=== PATIENT | male | born 1945 | race Caucasian/White ===

== ENCOUNTER 2017-12-20 06:29 | Day surgery (SDC) | payer MEDICARE, BC ==
[2017-12-19 10:01] VITALS: BMI 28.2
[2017-12-20] MEDS ORDERED: cefTRIAXone\\ROCEPHIN 2 GM, Admixture Fee 1 EACH in Sodium Chloride 0.9% 100 ML IVPB SCH (08:15)
[2017-12-20 08:22] LABS: #Basophils 0.1 thou/uL (0.0-0.2); #Eosinphils 0.1 thou/uL (0.0-0.7); #Lymphocytes 1.1 thou/uL (1.20-3.40); #Monocytes 0.5 thou/uL (0.11-0.59); #Neutrophils 3.5 thou/uL (1.40-6.50); %Basophils 1.1 % (0.0-1.0); %Eosinophils 2.2 % (0.0-10.0); %Lymphocytes 20.7 % (21.0-51.0); %Neutrophils 66.1 % (42.0-75.0); Hemoglobin 12.8 g/dL (14.0-18.0); Mean Corpuscular HGB CONC 31.8 g/dL (32.0-36.0); Mean Corpuscular Hemoglobin 27.5 pg (27.0-31.0); Mean Corpuscular Volume 86.3 fl (80.0-94.0); Platelet Count 192 thou/uL (130-400); RBC Distribution Width 13.7 % (11.5-14.5); Red Blood Cell (RBC) Count 4.64 mill/uL (4.70-6.10); White Blood Cell (WBC) Count 5.3 thou/uL (4.8-10.8)
[2017-12-20 08:30] LABS: INR-International Normal Ratio 1.1; PTT 30.3 SEC (22.9-36.1); Prothrombin Time 14.1 SEC (12.0-14.7)
[2017-12-20 08:36] LABS: Anion Gap 12 mmol/L (10-20); BUN (Urea Nitrogen) 13 mg/dL (8.4-25.7); Calc. Creatinine Clearance 102 mL/min (70-130); Calcium 9.5 mg/dL (7.8-10.44); Carbon Dioxide 26 mmol/L (23-31); Chloride 104 mmol/L (98-107); Estimated GFR-MDRD 86; Glucose 187 mg/dL (83-110); Potassium 4.1 mmol/L (3.5-5.1); Sodium 138 mmol/L (136-145)
[2017-12-20] MEDS ORDERED: Fentanyl 100 MCG/2 ML VIAL ONE (09:49)
[2017-12-20] MEDS ORDERED: MITOMYCIN IR SCH ×2 (10:30→11:00)
[2017-12-20] MEDS ORDERED: ADMIXTURE FEE IR SCH ×2 (10:30→11:00)
[2017-12-20] MEDS ORDERED: SODIUM CHLORIDE IR SCH ×2 (10:30→11:00)
[2017-12-20] MEDS ORDERED: SUGAMMADEX SODIUM 500 MG/5 ML VIAL ONE (11:04)
[2017-12-20] MEDS ORDERED: B & O ONE (12:48)
--- NOTE | 2017-12-20 17:11 | OP ---
DATE OF PROCEDURE: 12/20/2017 PREOPERATIVE DIAGNOSIS: Bladder tumor. POSTOPERATIVE DIAGNOSIS: Bladder tumor. PROCEDURE PERFORMED: Cysto and TURBT. SURGEON: Dr. Leroy Carmona ANESTHETIC: General. ESTIMATED BLOOD LOSS: 50 mL DRAINS PLACED: A 20-Turkmen Hilton with 20 mL in the balloon, also had mitomycin C 50 mg and 60 mL of normal saline, placed at the end of the case. FINDINGS: There was no evidence of urethral stricture disease. There was moderate lateral lobe hype rtrophy. There was one large over 5 cm papillary tumor coming off the left wall. It was lying over the left ureteral orifice, but not involving it. I saw no other papillary tumors, lesions, or other suspicious areas in the bladder. SPECIMENS SENT OFF: Superficial and deep of this tumor. OPERATIVE TECHNIQUE: After obtaining written and verbal consent from the patient after receiving IV antibiotics, he was taken to the operating suite. He was placed in the supine position on the [facility] ent table. PlexiPulses were placed on his lower extremities and turned on. He was given a general a nesthetic and oral intubation. He was placed in the dorsal lithotomy position and sterilely prepped and draped. Cystoscopy was performed with a 22-Turkmen sheath. This was well lubricated and passed u nder direct vision through the male urethra and into the urinary bladder with the aid of a 30-degree lens and a video camera and monitor. The bladder was filled and emptied a number of times and examin ed with both a 30 and 70 degree lens. At this point, the instruments were removed. A 24-Turkmen rese ctoscope sheath with visual obturator was passed through the male urethra into the bladder with a 30- degree lens. Gyrus generator with a bladder tumor loop and an Cronin resectoscope with 30-degree l ens and video camera and monitor were used. We scraped off and resected the bladder tumor was superf icial in the bladder wall either this out. He had a little bit of obturator reflex starting, so he w as given a deeper paralytic and we went ahead and resected deep in this region and ellik'd these out and then cauterized the edges and the base from where we had resected. The instruments were then rem romi. Hilton catheter was placed. Mitomycin C was placed and a catheter plug was placed. He was prabhu kened, extubated, and taken by stretcher to the recovery room.
--- NOTE | 2017-12-22 00:18 | EKG ---
Test Reason : PREOP Blood Pressure : / mmHG Vent. Rate : 068 BPM Atrial Rate : 068 BPM P-R Int : 186 ms QRS Dur : 092 ms QT Int : 372 ms P-R-T Axes : 018 -19 047 degrees QTc Int : 395 ms Normal sinus rhythm Normal ECG When compared with ECG of 27-NOV-2015 19:10, Criteria for Inferior infarct are no longer Present Confirmed by Eliane ROSA ([id number]) on 12/22/2017 12:17:45 AM Referred By: JUAN Confirmed By:Eliane ROSA
== END 2017-12-20 14:15 | disposition home or self-care (01) ==
LOC: SDC 06:29
PROVIDERS: ATTEND Urology
PROC: 0TBB8ZX Excision of Bladder, Via Natural or Artificial Opening Endoscopic, Diagnostic (ICD-10-PCS; principal; 2017-12-20)
DX: C67.2 Malignant neoplasm of lateral wall of bladder (principal); I10 Essential (primary) hypertension; E78.00 Pure hypercholesterolemia, unspecified; I25.10 Atherosclerotic heart disease of native coronary artery without angina pectoris; K21.9 Gastro-esophageal reflux disease without esophagitis; E78.5 Hyperlipidemia, unspecified; E11.9 Type 2 diabetes mellitus without complications; E03.9 Hypothyroidism, unspecified; Z86.010 Personal history of colon polyps; Z87.891 Personal history of nicotine dependence; Z87.442 Personal history of urinary calculi; Z79.899 Other long term (current) drug therapy; Z79.82 Long term (current) use of aspirin; Z79.84 Long term (current) use of oral hypoglycemic drugs; Z88.8 Allergy status to other drugs, medicaments and biological substances; Z91.048 Other nonmedicinal substance allergy status; Z96.662 Presence of left artificial ankle joint; Z95.5 Presence of coronary angioplasty implant and graft; Z98.41 Cataract extraction status, right eye; Z98.42 Cataract extraction status, left eye; Z98.1 Arthrodesis status; Z98.890 Other specified postprocedural states
CPT/HCPCS: 52235; 80048; 85025; 85610; 85730; 88305; 93005; J9280 ×2; 36415; 93010; J0696; J3010; J3370; J7050

== ENCOUNTER 2018-04-04 10:50 | Outpatient (CLI) | payer MEDICARE, BC ==
[2018-04-04 11:50] LABS: Hemoglobin 12.3 g/dL (14.0-18.0); Mean Corpuscular HGB CONC 31.7 g/dL (32.0-36.0); Mean Corpuscular Hemoglobin 26.8 pg (27.0-31.0); Mean Corpuscular Volume 84.5 fl (80.0-94.0); Mean Platelet Volume 8.5 fL (7.4-10.4); Platelet Count 181 thou/uL (130-400); RBC Distribution Width 15.3 % (11.5-14.5); Red Blood Cell (RBC) Count 4.58 mill/uL (4.70-6.10)
[2018-04-04 12:00] LABS: INR-International Normal Ratio 1.1; PTT 29.1 SEC (22.9-36.1); Prothrombin Time 14.4 SEC (12.0-14.7)
[2018-04-04 12:15] LABS: Anion Gap 13 mmol/L (10-20); BUN (Urea Nitrogen) 9 mg/dL (8.4-25.7); Calc. Creatinine Clearance 0 mL/min (70-130); Calcium 9.6 mg/dL (7.8-10.44); Carbon Dioxide 28 mmol/L (23-31); Chloride 102 mmol/L (98-107); Estimated GFR-MDRD 79; Glucose 131 mg/dL (83-110); Potassium 4.4 mmol/L (3.5-5.1); Sodium 139 mmol/L (136-145)
== END 2018-04-04 10:51 | disposition home or self-care (01) ==
LOC: LABBT 10:50
PROVIDERS: ATTEND Urology
DX: Z01.812 Encounter for preprocedural laboratory examination (principal); C67.9 Malignant neoplasm of bladder, unspecified
CPT/HCPCS: 80048; 85027; 85610; 85730

== ENCOUNTER 2018-04-09 05:33 | Day surgery (SDC) | payer MEDICARE, BC ==
[2018-04-04 11:26] VITALS: BMI 28.7
[2018-04-09] MEDS ORDERED: Fentanyl 100 MCG/2 ML VIAL ONE (06:57)
[2018-04-09] MEDS ORDERED: Iothalamate Meglumine 60% 50 ML VIAL FS ONE (07:17)
[2018-04-09] MEDS ORDERED: Levofloxacin 500 mg/D5W 100 ml Premix Bag ONE (07:30)
[2018-04-09] MEDS ORDERED: Ondansetron HCl/PF 4 MG/2 ML Vial ONE ×3 (08:29→11:49)
--- NOTE | 2018-04-09 10:31 | RAD ---
BILATERAL RETROGRADE UROGRAMS: Date: 04/09/18 HISTORY: Urinary bladder tumor. FLUOROSCOPY: Total fluoroscopy time is 1 minute and 12 seconds with a total dose of 43.6 mGy*cm^2. FINDINGS: Groundskeeper Porter image demonstrates surgical instrument overlying the midline of the pelvis. Phleboliths overlie the right hemipelvis. No suspicious calcifications are seen. Degenerative changes are seen in the sp ine with right convex curvature present. Bilateral retrograde urograms demonstrate no filling defect within the ureters bilaterally and there is no hydronephrosis or hydroureter. Final image demonstrate s emptying of the renal collecting systems, greater on the left. Urinary bladder is not completely op acified. Correlation with intraoperative findings is recommended. There is a tiny metallic density seen just inferior to the left humeral head of uncertain etiology. IMPRESSION: Bilateral retrograde urograms demonstrating no evidence of obstruction or definite filling defect see n to suggest calculus. Correlation with intraoperative findings is recommended. POS: ALESSANDRO
[2018-04-09] MEDS ORDERED: Lidocaine 1% PF 5 ML VIAL ONE (11:49)
[2018-04-09] MEDS ORDERED: PROPOFOL 200 MG/20 ML VIAL ONE (11:49)
[2018-04-09] MEDS ORDERED: Dexamethasone 20 MG/5 ML VIAL ONE (11:49)
[2018-04-09] MEDS ORDERED: ePHEDrine/0.9% NaCl/PF SYRINGE 50 mg/10 ml ONE (11:49)
--- NOTE | 2018-04-09 15:44 | OP ---
DATE OF PROCEDURE: 04/09/2018 PREOPERATIVE DIAGNOSIS: History of bladder cancer, status post induction BCG. POSTOPERATIVE DIAGNOSIS: History of bladder cancer, status post induction BCG. PROCEDURE PERFORMED: Cystoscopy, bilateral retrogrades, bladder biopsy. SURGEON: Dr. Leroy Carmona. ANESTHETIC: General. ESTIMATED BLOOD LOSS: Less than 50 mL. DRAINS: None. PATHOLOGY: We did biopsy of the mucosal line small less than 0.5 cm nonsuspicious lesion on the mid trigone. We did random bladder biopsies with a biopsy of prior tumor site left wall. FINDINGS: There is no obvious tumor, foreign body, or stone seen. Retrograde studies were normal. OPERATIVE TECHNIQUE: Obtain written verbal consent from the patient and after receiving IV antibioti cs, he was taken to the operating suite. He was placed in supine position on the treatment table. P lexiPulses were placed on his lower extremities and turned on. He was given a general anesthetic and oral obturator intubation. He was placed in dorsal lithotomy position, sterilely prepped and draped . Cystoscopy was performed with a 22-Qatari sheath. This was well lubricated, passed under direct v ision through the male urethra into the urinary bladder with aid of a 30 degree lens, a video camera and monitor. The bladder was filled and emptied few times as it was inspected with the 30 and the 70 degree lens. There was evidence of prior tumor resection site on the left side, but no evidence of recurrent papillary tumors or suspicious areas. There was a little mound of less than 0.5 cm size in the mid trigone that was covered with mucosa, it was not really suspicious, but we did biopsy and de stroyed this. This was done later in the procedure. At this point, we went ahead and did dental services director KUB with the fluoroscopy unit. We brought in a 5 Qatari Pollack catheter, flushed with contrast, placed in the left ureteral orifice and slowly injected about 10 mL of contrast in a retrograde manner, taki ng images as we did this, the right side was done in a similar manner. Drainage films were taken on both sides and there were no suspicious areas of filling defect or obstruction noted on either side. This with a cold cup biopsy forceps, we did the small trigonal lesion. We did random bladder biopsi es and then biopsy of old tumor site. We then used the Bugbee electrode to cauterize all these biops y sites and at this point, the bladder was drained, the instruments were removed. He was awakened, e xtubated, and taken by stretcher to the recovery room.
== END 2018-04-09 10:35 | disposition home or self-care (01) ==
LOC: SDC 05:33
PROVIDERS: ATTEND Urology
PROC: 0TBB8ZX Excision of Bladder, Via Natural or Artificial Opening Endoscopic, Diagnostic (ICD-10-PCS; principal; 2018-04-09)
DX: C67.2 Malignant neoplasm of lateral wall of bladder (principal); N30.80 Other cystitis without hematuria; Z91.048 Other nonmedicinal substance allergy status; Z88.8 Allergy status to other drugs, medicaments and biological substances
CPT/HCPCS: 52204; 74420; 82962; 88305; C1758; 36416; J0131; J1100; J1956; J2001; J2405; J2704; J3010; Q9961

== ENCOUNTER 2022-04-27 11:14 | Outpatient (CLI) | payer MEDICARE, BC | END 2022-04-27 11:15 | disposition home or self-care (01) | LOC: CT 11:14 | PROVIDERS: ATTEND Thoracic Surgery (Cardiothoracic Vascular Surgery) | DX: I71.4 Abdominal aortic aneurysm, without rupture (principal) | CPT/HCPCS: 74174; 82565 ==

== ENCOUNTER 2022-12-07 12:03 | Outpatient (CLI) | payer MEDICARE, BC ==
[2022-12-07 13:33] LABS: PTT 27.1 sec (22.0-33.0); Prothrombin Time 10.9 sec (9.5-12.1)
[2022-12-07 13:35] LABS: Hemoglobin 15.4 g/dL (13.5-17.5); Mean Corpuscular HGB CONC 34.1 g/dL (32.0-36.0); Mean Corpuscular Hemoglobin 30.9 pg (27.0-33.0); Mean Corpuscular Volume 90.8 fl (81.2-95.1); Mean Platelet Volume 10.3 fl (7.4-10.4); Platelet Count 146 10x3/uL (150-450); RBC Distribution Width 13.3 % (11.5-14.5); Red Blood Cell (RBC) Count 4.98 10x6/uL (4.32-5.72)
[2022-12-07 13:50] LABS: Anion Gap 16 mmol/L (10-20); BUN (Urea Nitrogen) 20 mg/dL (8.4-25.7); Calc. Creatinine Clearance 0 mL/min (70-130); Calcium 9.8 mg/dL (7.8-10.44); Carbon Dioxide 24 mmol/L (23-31); Chloride 104 mmol/L (98-107); Estimated GFR 79; Glucose 118 mg/dL (83-110); Sodium 140 mmol/L (136-145)
[2022-12-07 13:51] LABS: ALT (SGPT) 56 U/L (8-55); AST (SGOT) 38 U/L (5-34); Albumin 4.6 g/dL (3.4-4.8); Alkaline Phosphatase 60 U/L (40-110); Bilirubin, Direct 0.4 mg/dL (0.1-0.3); Bilirubin, Total 1.3 mg/dL (0.2-1.2); Protein, Total 7.2 g/dL (5.8-8.1)
== END 2022-12-07 12:04 | disposition home or self-care (01) ==
LOC: LABBT 12:03
PROVIDERS: ATTEND Urology
DX: Z01.818 Encounter for other preprocedural examination (principal); C67.2 Malignant neoplasm of lateral wall of bladder
CPT/HCPCS: 80048; 80076; 85027; 85610; 85730; 87086; 93005; 93010

== ENCOUNTER 2022-12-13 10:09 | Day surgery (SDC) | payer MEDICARE, BC ==
[2022-12-12 12:34] VITALS: BMI 27.3
[~2022-12-13 10:09] MED LIST: mitoMYcin 40 MG in Sodium Chloride 0.9% 40 ML I-VESIC SCH
[2022-12-13] MEDS ORDERED: Iopamidol 15 ML ONE (11:50)
[2022-12-13] MEDS ORDERED: Fentanyl 250 MCG/5 ML VIAL ONE (13:00)
[2022-12-13] MEDS ORDERED: Levofloxacin 500 mg/D5W 100 ml Premix Bag ONE (13:05)
[2022-12-13] MEDS ORDERED: PROPOFOL 200 MG/20 ML VIAL ONE (13:10)
[2022-12-13] MEDS ORDERED: NEOSTIGMINE 3 MG/3 ML SYR 3 MG/3 ML SYRINGE ONE (13:10)
[2022-12-13] MEDS ORDERED: Dexamethasone 20 MG/5 ML VIAL ONE (13:10)
[2022-12-13] MEDS ORDERED: Ondansetron PF 4 MG/2 ML Vial ONE (13:10)
[2022-12-13] MEDS ORDERED: Rocuronium Bromide 10 MG/ML (10ML VIAL) ONE (13:10)
[2022-12-13] MEDS ORDERED: Glycopyrrolate 0.2 MG/ML 5 ML SYRINGE ONE (13:10)
[2022-12-13] MEDS ORDERED: Ketorolac Tromethamine 30 MG/ML VIAL ONE (13:10)
== END 2022-12-13 15:56 | disposition home or self-care (01) ==
LOC: SDC 10:09
PROVIDERS: ATTEND Urology
PROC: 0T5B8ZZ Destruction of Bladder, Via Natural or Artificial Opening Endoscopic (ICD-10-PCS; principal; 2022-12-13)
PROC: 3E0K805 Introduction of Other Antineoplastic into Genitourinary Tract, Via Natural or Artificial Opening Endoscopic (ICD-10-PCS; 2022-12-13)
DX: N30.90 Cystitis, unspecified without hematuria (principal); N40.0 Benign prostatic hyperplasia without lower urinary tract symptoms; N32.89 Other specified disorders of bladder; I25.10 Atherosclerotic heart disease of native coronary artery without angina pectoris; E78.5 Hyperlipidemia, unspecified; I10 Essential (primary) hypertension; E11.9 Type 2 diabetes mellitus without complications; E03.9 Hypothyroidism, unspecified; K21.9 Gastro-esophageal reflux disease without esophagitis; M19.90 Unspecified osteoarthritis, unspecified site; G89.29 Other chronic pain; M54.9 Dorsalgia, unspecified; Z85.51 Personal history of malignant neoplasm of bladder; Z87.891 Personal history of nicotine dependence; Z79.1 Long term (current) use of non-steroidal anti-inflammatories (NSAID); Z79.82 Long term (current) use of aspirin; Z79.84 Long term (current) use of oral hypoglycemic drugs; Z79.890 Hormone replacement therapy; Z79.899 Other long term (current) drug therapy; Z88.8 Allergy status to other drugs, medicaments and biological substances; Z91.048 Other nonmedicinal substance allergy status
CPT/HCPCS: 51720; 52234; J9280; 74420; 88305; J1100; J1885; J1956; J2405; J2704; J3010; Q9967